=== PATIENT | female | born 1940 | race Caucasian/White ===

== ENCOUNTER → 2019-02-20 14:33 | Outpatient (BNVA) | payer OTHER, SELFPAY | PROVIDERS: PCP Family Medicine; Referring Provider Nurse Practitioner Family; Visit Provider Nurse Practitioner Gerontology | DX: R32 Unspecified urinary incontinence (principal); Z96.0 Presence of urogenital implants; E11.40 Type 2 diabetes mellitus with diabetic neuropathy, unspecified; I10 Essential (primary) hypertension | CPT/HCPCS: 99204 ==

== ENCOUNTER 2019-05-07 09:53 | Day surgery (SDC) | payer OTHER, SELFPAY ==
--- NOTE | 2019-05-07 10:12 | W.PM.HP.N ---
Date of service: 05/07/19 Time of Service: :19 Assessment and Plan (1) Urinary incontinence: Current visit: No Status: Acute We will remove her Interstim so that she is able to have her pelvic MRI History of Present Illness Chief Complaint: Urinary Incontinence Narrative: This is a 78 year old woman who has a history of urinary incontinence. She had an Interstim placed as [facility] back in 2003. The battery was changed in 2008. The device is no longer providing benefit for her urinary issues. She has been identified as having a pelvic/ovarian mass. Her [employer] providers have recommended a pelvic MRI for evaluation. The MRI can not be safely accomplished unless her Interstim is removed. She presents for removal of the device. Review of Systems Review of Systems No fevers or chills No dysphasia. C/o hearing loss. Eye surgery for melanoma Hx diabetes and thyroid dysfunction No shortness of breath, cough or hemoptysis No chest pain or palpitations Hx GERD. No hepatitis, ulcers, jaundice, diarrhea or constipation No seizures, strokes. c/o tremor, peripheral neuropathy No bleeding disorders. Hx anemia No gout. Chronic back pain PFSH Social History Smoking/Tobacco Use Status: Never Alcohol Intake: never Drug use: Never Substance use type: does not use Do you feel safe at home: Yes Do you feel safe in your relationship?: Yes Meds Home Medications Medication Instructions Recorded Confirmed Type Lactobacillus acidophilus 100 100 mmu cells PO DAILY 02/20/19 05/07/19 History million cell capsule acetaminophen 325 mg capsule 325 mg PO Q6H PRN 02/20/19 05/07/19 History ascorbic acid (vitamin C) 500 mg 500 mg PO DAILY 02/20/19 05/07/19 History tablet bupropion HCl XL 300 mg 24 hr 300 mg PO QAM 02/20/19 05/07/19 History tablet, extended release cyanocobalamin (vit B-12) 500 mcg 500 mcg PO DAILY 02/20/19 05/07/19 History lozenges diclofenac 1 % topical gel 2 gm TP QID 02/20/19 05/07/19 History ferrous gluconate 324 mg (37.5 mg 324 mg PO DAILY tab 02/20/19 05/07/19 History iron) tablet fluticasone propionate 50 1 spray BROCK DAILY 02/20/19 05/07/19 History mcg/actuation nasal spray,suspension gabapentin 100 mg capsule 200 mg PO TID cap 02/20/19 05/07/19 History levothyroxine 125 mcg capsule 125 mcg PO DAILY 02/20/19 05/07/19 History lisinopril 40 mg tablet 40 mg PO DAILY 02/20/19 05/07/19 History metoprolol succinate ER 25 mg 25 mg PO DAILY 02/20/19 05/07/19 History tablet,extended release 24 hr mirabegron ER 50 mg 50 mg PO DAILY 02/20/19 05/07/19 History tablet,extended release 24 hr multivitamin capsule 1 cap PO DAILY 02/20/19 05/07/19 History omeprazole 20 mg capsule,delayed 20 mg PO DAILY 02/20/19 05/07/19 History release oxycodone 10 mg tablet 10 mg PO Q6H PRN tab 02/20/19 05/07/19 History simvastatin 20 mg tablet 20 mg PO QHS 02/20/19 05/07/19 History vitamin E (dl, acetate) 100 unit 500 unit PO DAILY cap 02/20/19 05/07/19 History capsule Allergies Allergy/AdvReac Type Severity Reaction Status Date / Time halothane Allergy Verified 05/07/19 10:11 Sulfa (Sulfonamide AdvReac Intermediate Verified 05/07/19 10:11 Antibiotics) Exam Narrative Exam Narrative: She appears chronically ill. She does not appear septic or toxic Her vital signs are documented elsewhere Her neck is supple Her lungs are clear Cardiac exam shows a regular rate and rhythm Her abdomen is soft with no masses She is awake, alert and oriented.
[2019-05-07 10:23] VITALS: BP 160/86; PULSE 58; RESP 16; TEMP 36.5; O2SAT 98
[2019-05-07] MEDS: Lactated Ringers 1,000 ML 80 ML IV (10:35)
[2019-05-07] MEDS: ceFAZolin 1 GM/50 ML BAG IVPB (11:27)
[2019-05-07] MEDS: Bupivacaine 0.25% Pres-Free 30 ML VIAL (11:43)
--- NOTE | 2019-05-07 12:02 | W.PM.DSUDISC ---
Discharge Plan Disposition Patient Disposition: HOME Condition: Stable Discharge Details Reason For Visit: surgery Attending Provider: Tu Gan Primary Care Provider: Hayden Ambrose Home Meds and New Rx's Prescriptions: No Action acetaminophen 325 mg capsule 325 mg PO Q6H PRNRF: 0 bupropion HCl 300 mg tablet extended release 24 hr 300 mg PO QAM RF: 0 cyanocobalamin (vitamin B-12) 500 mcg lozenge 500 mcg PO DAILY RF: 0 diclofenac sodium 1 % gel 2 gm TP QID RF: 0 ferrous gluconate 324 mg (37.5 mg iron) tablet 324 mg PO DAILY RF: 0 fluticasone propionate [Flonase Allergy Relief] 50 mcg/actuation spray,suspension 1 spray BROCK DAILY RF: 0 gabapentin 100 mg capsule 200 mg PO TID RF: 0 Lactobacillus acidophilus 100 million cell capsule 100 mmu cells PO DAILY RF: 0 levothyroxine 125 mcg capsule 125 mcg PO DAILY RF: 0 lisinopril 40 mg tablet 40 mg PO DAILY RF: 0 metoprolol succinate 25 mg tablet extended release 24 hr 25 mg PO DAILY RF: 0 multivitamin capsule 1 cap PO DAILY RF: 0 Myrbetriq 50 mg tablet extended release 24 hr 50 mg PO DAILY RF: 0 omeprazole 20 mg capsule,delayed release(DR/EC) 20 mg PO DAILY RF: 0 oxycodone 10 mg tablet 10 mg PO Q6H PRNRF: 0 simvastatin 20 mg tablet 20 mg PO QHS RF: 0 ascorbic acid (vitamin C) 500 mg tablet 500 mg PO DAILY RF: 0 vitamin E (dl, acetate) 100 unit capsule 500 unit PO DAILY RF: 0 Discharge Instructions Additional Instructions: OK to shower/bathe Home health to remove pt's bandage and leave wound open to air in 24-48 hours F/U with us prn Activity:: Activity as Tolerated Shower/Bathe:: 24 hours Diet:: As Tolerated Discharge Orders Discharge Orders: Discharge Order (Routine); Ordered 05/07/19 Ordered By: Tu Gan DS: Diagnosis Discharge Diagnosis (1) Urinary incontinence: Status: Acute
[2019-05-07 12:35] VITALS: BP 138/76; PULSE 52; RESP 16; TEMP 36.7; O2SAT 94
[2019-05-07] MEDS: oxyCODONE 5 MG TAB 10 MG PO (12:50)
--- NOTE | 2019-05-07 14:06 | ROE_ITS ---
DATE OF PROCEDURE: May 07, 2019 PREOPERATIVE DIAGNOSIS: Urinary incontinence. POSTOPERATIVE DIAGNOSIS: Same. PROCEDURE: Removal of InterStim. SURGEON: Tu Gna M.D. ANESTHESIA: MAC with local. COMPLICATIONS: None. HISTORY: This is a 78-year-old woman who has a history of urinary incontinence. She had an InterStim placed back in 2003. She had the battery changed in 2008. She now has been identified as having a pelvic mass. She needs to have her InterStim removed to be evaluated with an MRI. She presents for removal of the InterStim. PROCEDURE: The patient was brought to the procedure room on 05/07/19. She was placed in the prone position. Her buttocks were prepped and draped. The InterStim device was palpable in the right buttock area. 0.25% Marcaine was then infused and injected in the subcutaneous tissue. The incision was opened using the Bovie. The InterStim battery was identified and withdrawn from the incision site. The InterStim lead was still attached to the battery. We were able to trace the lead to its insertion point in the midline. We secured the lead at that insertion point and used gentle pressure to withdraw the entire lead. All components appeared to be present, but we will plan on a post-procedure x- ray to ensure no residual components. The wound was then irrigated with saline. We closed the wound with simple interrupted #3-0 Vicryl subcutaneously and #4-0 Vicryl subcuticular suture. A dry, sterile dressing and OpSite was then placed. The patient tolerated the procedure well with no complications. cc: Hayden Ambrose M.D.
== END 2019-05-07 13:31 | disposition home or self-care (01) ==
PROVIDERS: PCP Family Medicine; Visit Provider Urology
PROC: (CPT 64585; principal; 2019-05-07 11:00)
DX: Z46.2 Encounter for fitting and adjustment of other devices related to nervous system and special senses (principal); R32 Unspecified urinary incontinence; R19.00 Intra-abdominal and pelvic swelling, mass and lump, unspecified site
CPT/HCPCS: 64585; 64595; C1767; NC; J0690; J1200; J2405; J3010